=== PATIENT | female | born 1935 | race Caucasian/White ===

== ENCOUNTER → 2017-12-04 | Outpatient (CLI) | payer MEDICARE, BC, OTHER ==
[~2017-12-04] MED LIST: MONT10TA4 PO; OMEP20TA93 PO; PROP150T PO
[2017-12-04 13:10] LABS: AUTOMATED NEUTROPHIL # 4.7 TH/MM3 (1.8-7.7); BASOPHIL % 0.6 % (0.0-2.0); EOSINOPHIL % 0.6 % (0.0-4.0); HEMOGLOBIN 14.3 GM/DL (11.6-15.3); LYMPH % 22.5 % (9.0-44.0); LYMPHOCYTE # 1.6 TH/MM3 (1.0-4.8); MEAN CELL VOLUME 90.8 FL (80.0-100.0); MEAN CORPUSCULAR HEMOGLOBIN 30.2 PG (27.0-34.0); MEAN CORPUSCULAR HGB CONC 33.2 % (32.0-36.0); MEAN PLATELET VOLUME 9.5 FL (7.0-11.0); MONOCYTE # 0.6 TH/MM3 (0-0.9); NEUT % 67.3 % (16.0-70.0); PLATELET COUNT 199 TH/MM3 (150-450); RED BLOOD COUNT 4.73 MIL/MM3 (4.00-5.30); RED CELL DISTRIBUTION WIDTH 13.4 % (11.6-17.2)
[2017-12-04 13:27] LABS: BICARBONATE 29.5 MEQ/L (21.0-32.0)
[2017-12-04 14:43] LABS: BILIRUBIN, URINE NEG (NEG); BLOOD, URINE SMALL (NEG); GLUCOSE,URINE NEG (NEG); KETONE, URINE NEG (NEG); MUCUS URINE FEW /lpf (OCC); NITRITE,URINE NEG (NEG); SQUAMOUS EPITHELIAL CELL URINE <1 /hpf (0-5); URINE COLOR YELLOW (YELLW/STRAW); URINE LEUKOCYTE ESTERASE NEG (NEG)
--- NOTE | 2017-12-04 15:34 | RADRPT ---
EXAM DATE: 12/04/2017 1:46 PM EDT AGE/SEX: 82 years / Female INDICATIONS: Evaluate for pneumonia, pneumothorax or communicable disease. Pre-op for hysteroscopy. CLINICAL DATA: This is the patient's initial encounter. Patient reports that signs and symptoms have been present for 1 day and indicates a pain score of 0/10. MEDICAL/SURGICAL HISTORY: None. Coronary artery stent. COMPARISON: No prior exams available for comparison. FINDINGS: PA and lateral views of the chest demonstrate the lungs to be symmetrically aerated without evidence of mass, infiltrate or effusion. The cardiomediastinal contours are unremarkable. Spurs are seen in t he thoracic spine. CONCLUSION: No acute cardiopulmonary process. Electronically signed by: Epifanio Hill MD 12/04/2017 3:33 PM EDT
== END ==
LOC: CPRE 12:35
PROVIDERS: ATTEND Obstetrics & Gynecology
DX: Z01.812 Encounter for preprocedural laboratory examination (principal); Z01.818 Encounter for other preprocedural examination; N85.00 Endometrial hyperplasia, unspecified; D25.9 Leiomyoma of uterus, unspecified; R10.2 Pelvic and perineal pain
CPT/HCPCS: 36415; 71046; 80051; 81001; 85025

== ENCOUNTER → 2017-12-08 | Day surgery (SDC) | payer MEDICARE, BC, OTHER ==
[~2017-12-08] VITALS: Ht 157.5 cm; Wt 69.5 kg
[~2017-12-08] MED LIST changes: +ACETAMINOPHEN 1000 MG/100 ML 100 ML IV PRN; +CHLORHEXIDINE GLUCONATE 2 % 1 PACK (2 CLOTHS) TOPICAL PRN; +DEXAMETHASONE SOD PHOS 4 MG/ML VIAL IV ONE; +DO NOT ADM ANY ANTICOAGULANT DRUGS PRN; +KETOROLAC TROMETHAMINE 30 MG/ML (IVP) VIAL IV PUSH ONE; +LACTATED RINGER'S 1000 ML IV PRN; +LIDOCAINE HCL 1% PF 5 ML SYRINGE OTHER ONE; +METOCLOPRAMIDE HCL 10 MG/2 ML VIAL IV PRN; +METOPROLOL TARTRATE 25 MG TAB PO PRN; +ONDANSETRON HCL 4 MG/2 ML VIAL IV PUSH ONE; +POVIDONE IODINE 5% (ANTISEPSIS KIT) 4 APPLICATIONS EACH NARE PRN; +PROPOFOL 200 MG/20 ML AMP IV ONE; +SODIUM CHLORID 0.9% 500 ML IV PRN; +[UNRECOGNIZED DRUG - REMARK] SCH; +ePHEDrine/NS 25 MG/5 ML SYRINGE IV ONE
--- NOTE | 2017-12-08 06:29 | MH ---
cc: Epifanio Baptiste MD DATE OF ADMISSION: 12/08/2017 DATE OF ADMISSION: 12/08/2017. ADMITTING DIAGNOSIS: 1. Pelvic pain. 2. Uterine fibroids, with endometrial thickening. HISTORY OF PRESENT ILLNESS: The patient is an 82-year-old, single, white female, para 3-0-2-3, has had some pelvic pains, pubic, since about the end of 09/2017, reminiscent of menstrual pain and labor pain, without bleeding. She saw Dr. Eng, who obtained a CT scan on 10/13/2017 that showed extensive diverticulosis, small cyst on the right kidney and the calcifications consistent with fibroids. She saw me on 10/21/2017. Ultrasound on 10/26/2017 showed a uterus that measured 5.4 cm, endometrium of 8 mm, normal appearing ovaries and multiple small fibroids. She is now admitted for surgical evaluation. PAST SURGICAL HISTORY: appendectomy, 1999 had back surgery, L5-S1, [id number] Achilles tendon repair and vein ligations, 2004 stents in the right CA artery, 2007 breast adenoma, 2007 rotator cuff, 1995-1804 cataracts, D and C in 2012. MEDICATIONS: She will bring in a list. ALLERGIES: INCLUDE LEVAQUIN, CEFTIN AND CLINDAMYCIN. OBSTETRIC HISTORY: Three vaginal deliveries, 2 spontaneous abortions. SOCIAL HISTORY: She is retired, . Alcohol: Occasional. Tobacco: None. Drugs: None. FAMILY HISTORY: Noncontributory. PHYSICAL EXAMINATION: GENERAL: This is a well-nourished, well-developed white female. VITAL SIGNS: Stable. HEENT: Normal. CHEST: Clear. CARDIOVASCULAR: Regular rate. BREASTS: Symmetrical. ABDOMEN: Benign. PELVIC: External genitalia and BUS vagina is normal. Cervix normal. Uterus is normal size, shape. Adnexa nonpalpable. PLAN: As above, she is for hysteroscopy, D and C. I also explained the procedures, the risks, benefits and complications. The patient would like to proceed. MD VIKTORIA Vasquez/JUAN C , 09:20 PM , 10:45 PM [facility]ITALAndrew
--- NOTE | 2017-12-08 08:38 | MP ---
cc: Epifanio Baptiste MD DATE OF OPERATION: 12/08/2017 DATE OF PROCEDURE: 12/08/2017. PREOPERATIVE DIAGNOSES: Pelvic pain, uterine fibroids, endometrial thickening. POSTOPERATIVE DIAGNOSES: Pelvic pain, uterine fibroids, endometrial thickening, endometrial polyp. PROCEDURE: Hysteroscopy, D and C. ANESTHESIA: General LMA. ESTIMATED BLOOD LOSS: EBL for the procedure, less than 10 mL FLUIDS: 1/2 liter of crystalloid. OBJECTIVE FINDINGS: Following induction of adequate general LMA anesthesia, the patient was prepped and draped supine on the operating table in dorsal lithotomy position, usual sterile fashion, with the bladder being drained via in-and-out catheterization. The cervix was exposed with Handheld retractors. The vagina is stenotic. Anterior lip grasped with a single-tooth tenaculum, cervix, uterus sounded to 7 cm with an atraumatic dilator, then dilated to a #18 Hanks dilator. Hysteroscope was passed and revealed atrophic endocervix and small anterior polyp with submucosal fibroids. The endocervix is now curetted with small serrated curette, endometrium a small sharp curette and polyp forceps used to extract the polyp. All instruments were removed. The counts were correct. The patient's legs were taken down from the stirrups. She was awakened and taken to recovery room in good condition. Epifanio Baptiste MD JAW/TL , 07:52 AM , 08:37 AM
[2017-12-08 09:13] VITALS: BP 153/72; PULSE 60; RESP 18; TEMP 97.8; O2SAT 97
== END | disposition home or self-care (01) ==
LOC: HSDC 05:38
PROVIDERS: ATTEND Obstetrics & Gynecology
DX: D25.0 Submucous leiomyoma of uterus (principal); N84.0 Polyp of corpus uteri; N28.1 Cyst of kidney, acquired
CPT/HCPCS: 00952; 58558; 88305; J0131; J1100; J1885; J2405; J3010; J7120